=== PATIENT | female | born 1960 | race American Indian/Alaskan Native ===

== ENCOUNTER 2017-02-09 09:32 | Emergency (ER) | payer OTHER ==
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
[2017-02-09 12:09] VITALS: BP 110/62
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
== END 2017-02-09 12:10 | disposition home or self-care (01) ==
LOC: ED 09:32
DX: M54.2 Cervicalgia (principal); V49.49XA Driver injured in collision with other motor vehicles in traffic accident, initial encounter; Y93.89 Activity, other specified; Y92.89 Other specified places as the place of occurrence of the external cause; Y99.8 Other external cause status
CPT/HCPCS: 70450; 71010; 72125; 72170